=== PATIENT | female | born 1985 ===

== ENCOUNTER 2018-06-04 13:18 | Observation (INO) | payer SELFPAY ==
[2018-06-04 13:34] VITALS: BMI 40.0
[2018-06-04] MEDS ORDERED: Sodium Chloride 0.9% 1,000 ML IV STA (13:48)
--- NOTE | 2018-06-04 13:48 | ED PDOC ---
Arrival/HPI - General Chief Complaint: Abdominal Pain Historian: Patient - History of Present Illness Narrative History of Present Illness (Text): 06/04/18 13:42 32 y/o female, no significant pmh, nkda, c/o lower abdominal pain and nausea/vomiting x 1 week. Aching and cramp, on and off, occasional nausea and vomiting, no diarrhea, mild lower back pain, no numbness or tingling, no chest pain or shortness of breath, no other medical or psychological complaints. Past Medical History - Provider Review Nursing Documentation Reviewed: Yes - Infectious Disease Hx of Infectious Diseases: None - Cardiac Hx Cardiac Disorders: No - Pulmonary Hx Respiratory Disorders: Yes Hx Asthma: Yes - Neurological Hx Neurological Disorder: No - HEENT Hx HEENT Disorder: No - Renal Hx Renal Disorder: No - Endocrine/Metabolic Hx Endocrine Disorders: No - Hematological/Oncological Hx Blood Disorders: No - Integumentary Hx Dermatological Disorder: No - Musculoskeletal/Rheumatological Hx Musculoskeletal Disorders: No - Gastrointestinal Hx Gastrointestinal Disorders: No - Genitourinary/Gynecological Hx Genitourinary Disorders: No - Psychiatric Hx Psychophysiologic Disorder: No Hx Substance Use: No - Surgical History Hx Appendectomy: Yes Hx Section: Yes (x 1) Family/Social History - Physician Review Nursing Documentation Reviewed: Yes Family/Social History: Unknown Family HX Smoking Status: Never Smoked Hx Alcohol Use: No Hx Substance Use: No Allergies/Home Meds Allergies/Adverse Reactions: Allergies No Known Allergies Allergy (Verified 06/04/18 13:34) Home Medications: Home Meds Medication Instructions Recorded Confirmed No Known Home Med 06/04/18 06/04/18 Review of Systems - Review of Systems Constitutional: absent: Fatigue, Fevers Eyes: absent: Vision Changes ENT: absent: Hearing Changes Respiratory: absent: SOB, Cough Cardiovascular: absent: Chest Pain Gastrointestinal: Abdominal Pain, Nausea, Vomiting. absent: Constipation, Diarrhea Genitourinary Female: absent: Dysuria, Frequency Musculoskeletal: absent: Arthralgias, Back Pain, Neck Pain Skin: absent: Rash, Pruritis Neurological: absent: Headache, Dizziness Hemo/Lymphatic: absent: Adenopathy Psychiatric: absent: Anxiety, Depression, Suicidal Ideation Physical Exam Vital Signs Reviewed: Yes Vital Signs Temp Pulse Resp BP Pulse Ox 06/04/18 13:34 98.1 F 72 18 157/116 H 98 Temperature: Afebrile Blood Pressure: Hypertensive Pulse: Regular Respiratory Rate: Normal Appearance: Positive for: Well-Appearing, Non-Toxic, Comfortable Pain Distress: Moderate Mental Status: Positive for: Alert and Oriented X 3 - Systems Exam Head: Present: Atraumatic, Normocephalic Pupils: Present: PERRL Extroacular Muscles: Present: EOMI Conjunctiva: Present: Normal Mouth: Present: Moist Mucous Membranes Neck: Present: Normal Range of Motion Respiratory/Chest: Present: Clear to Auscultation, Good Air Exchange. No: Respiratory Distress, Accessory Muscle Use Cardiovascular: Present: Regular Rate and Rhythm, Normal S1, S2. No: Murmurs Abdomen: Present: Tenderness (lower abdominal region). No: Distention, Peritoneal Signs, Rebound, Guarding Genitourinary/Pelvic Exam: Present: Other (Pt. declined) Back: Present: Normal Inspection Upper Extremity: Present: Normal Inspection. No: Cyanosis, Edema Lower Extremity: Present: Normal Inspection. No: Edema Neurological: Present: GCS=15, CN II-XII Intact, Speech Normal Skin: Present: Warm, Dry, Normal Color. No: Rashes Psychiatric: Present: Alert, Oriented x 3, Normal Insight, Normal Concentration Medical Decision Making ED Course and Treatment: 06/04/18 13:54 -labs -CT abdomen and pelvis -IVF toradol/pepcid/zofran -Observe and reassess 06/04/18 17:06 -Urine hcg is negative -CT abdomen and pelvis: Mild dilatation of the proximal small bowel loops with fecalization of small bowel contents could be related to chronic stasis or developing/partial obstruction. Mild hepatomegaly and fatty liver\ -Labs are non significant -UA show no UTI -Paged out to the surgical elastic knitter. 06/04/18 17:45 -I spoke to the surgical elastic knitter Dr. Johnson, will come to the ER to evaluate the patient and request to admit to the hospitalist. 06/04/18 17:48 -I spoke to the hospitalist Dr. Martin, discussed about the case/labs/radiology result and surgical consult, agreed to admit to her service. - RAD Interpretation Radiology Orders: Date of service: 06/04/2018 PROCEDURE: CT Abdomen and Pelvis with contrast HISTORY: abdominal pain COMPARISON: None available. TECHNIQUE: CT scan of the abdomen and pelvis was performed after administration of intravenous contrast. Oral contrast was not administered. Coronal and sagittal reformatted images were obtained. Contrast dose: Radiation dose: Total exam DLP = 1194.61 mGy-cm. This CT exam was performed using one or more of the following dose reduction techniques: Automated exposure control, adjustment of the mA and/or kV according to patient size, and/or use of iterative reconstruction technique. FINDINGS: LOWER THORAX: The visualized lungs are clear. LIVER: Mild hepatomegaly and fatty liver. Normal homogeneous enhancement. No gross lesion or ductal dilatation. GALLBLADDER AND BILE DUCTS: Well distended. No calcified gallstones, wall thickening or pericholecystic fluid. PANCREAS: Normal in size with homogeneous enhancement. No gross lesion or ductal dilatation. SPLEEN: Normal in size and appearance. ADRENALS: No discrete nodule. KIDNEYS AND URETERS: Normal in size with homogeneous enhancement. No hydronephrosis. No solid mass. VASCULATURE: No aortic aneurysm. There are no aortic atherosclerotic calcifications or mural plaque present. BOWEL: Evaluation of the bowel is limited in the absence of oral contrast. There is mild dilatation of proximal small bowel loops with fecalization of contents. The mid and distal small bowel loops are normal in caliber. There is moderate amount of stool scattered throughout the colon. The colon is grossly normal in appearance. No bowel wall thickening or obstruction. APPENDIX: Not distinctly identified however no inflammatory changes in the right lower quadrant. PERITONEUM: No free fluid. No free air. LYMPH NODES: No enlarged lymph nodes. BLADDER: Well distended and normal in appearance. REPRODUCTIVE: The uterus is normal in size. BONES: No acute fracture. Within normal limits for the patient's age. OTHER FINDINGS: None. IMPRESSION: 1. Mild dilatation of the proximal small bowel loops with fecalization of small bowel contents could be related to chronic stasis or developing/partial obstruction. 2. Mild hepatomegaly and fatty liver. Sewer Hand: Radiologist - PA / CELLULAR BIOLOGIST / Resident Statement MD/DO has reviewed & agrees with the documentation as recorded. Disposition/Present on Arrival - Present on Arrival Any Indicators Present on Arrival: No History of DVT/PE: No History of Uncontrolled Diabetes: No Urinary Catheter: No History of Decub. Ulcer: No History Surgical Site Infection Following: None - Disposition Have Diagnosis and Disposition been Completed?: Yes Diagnosis: Abdominal pain, Nausea & vomiting, Abnormal CT of the abdomen Disposition: HOSPITALIZED Disposition Time: 17:14 Patient Plan: Observation Patient Problems: Current Active Problems Problem Status Onset Abdominal pain Acute Nausea & vomiting Acute Condition: STABLE Forms: [employer] (Lux[place]ish)
[2018-06-04 14:21] LABS: URINE BILIRUBIN NEGATIVE (NEGATIVE); URINE BLOOD SMALL (NEGATIVE); URINE GLUCOSE (UA) NEGATIVE (NEGATIVE); URINE LEUKOCYTE ESTERASE NEGATIVE Leu/uL (NEGATIVE); URINE PROTEIN NEGATIVE mg/dL (<30 mg/dL); URINE UROBILINOGEN 0.2 E.U./dL (<1 E.U./dL)
[2018-06-04 14:25] LABS: URINE APPEARANCE SL CLOUDY (CLEAR); URINE COLOR YELLOW (YELLOW)
[2018-06-04 14:32] LABS: URINE BACTERIA FEW /hpf; URINE RBC 0 - 2 /hpf (0-2); URINE WBC 0 - 2 /hpf (0-6)
[2018-06-04 14:36] LABS: BASO # 0.03 K/mm3 (0.0-2.0); BASO % 0.4 % (0.0-3.0); EOS # 0.2 (0.0-0.7); EOS % 2.3 % (1.5-5.0); HEMOGLOBIN 12.1 g/dL (12.0-16.0); LYMPH # 2.6 (1.2-3.4); LYMPH % 35.6 % (22.0-35.0); MEAN CELL VOLUME 81.8 fl (80.0-105.0); MEAN CORPUSCULAR HEMOGLOBIN 25.9 pg (25.0-35.0); MEAN CORPUSCULAR HGB CONC 31.6 g/dl (31.0-37.0); MEAN PLATELET VOLUME 9.9 fl (7.0-11.0); MONO # 0.4 (0.1-0.6); MONO % 5.8 % (1.0-6.0); RBC 4.68 10^6/uL (3.5-6.1); RED CELL DISTRIBUTION WIDTH 13.9 % (11.5-14.5); WHITE BLOOD COUNT 7.3 10^3/uL (4.5-11.0)
[2018-06-04 14:45] LABS: ALB/GLOB RATIO 1.2 (1.1-1.8); ALBUMIN 4.2 g/dL (3.0-4.8); ALT/SGPT 24 U/L (7-56); AST/SGOT 22 U/L (14-36); BLOOD UREA NITROGEN 13 mg/dL (7-21); CALCIUM 9.5 mg/dL (8.4-10.5); GFR NON-AFRICAN AMERICAN > 60; LIPASE 49 U/L (23-300)
--- NOTE | 2018-06-04 16:17 | CT ---
Date of service: 06/04/2018 PROCEDURE: CT Abdomen and Pelvis with contrast HISTORY: abdominal pain COMPARISON: None available. TECHNIQUE: CT scan of the abdomen and pelvis was performed after administration of intravenous contrast. Oral contrast was not administered. Coronal and sagittal reformatted images were obtained. Contrast dose: Radiation dose: Total exam DLP = 1194.61 mGy-cm. This CT exam was performed using one or more of the following dose reduction techniques: Automated exposure control, adjustment of the mA and/or kV according to patient size, and/or use of iterative reconstruction technique. FINDINGS: LOWER THORAX: The visualized lungs are clear. LIVER: Mild hepatomegaly and fatty liver. Normal homogeneous enhancement. No gross lesion or ductal dilatation. GALLBLADDER AND BILE DUCTS: Well distended. No calcified gallstones, wall thickening or pericholecystic fluid. PANCREAS: Normal in size with homogeneous enhancement. No gross lesion or ductal dilatation. SPLEEN: Normal in size and appearance. ADRENALS: No discrete nodule. KIDNEYS AND URETERS: Normal in size with homogeneous enhancement. No hydronephrosis. No solid mass. VASCULATURE: No aortic aneurysm. There are no aortic atherosclerotic calcifications or mural plaque present. BOWEL: Evaluation of the bowel is limited in the absence of oral contrast. There is mild dilatation of proximal small bowel loops with fecalization of contents. The mid and distal small bowel loops are normal in caliber. There is moderate amount of stool scattered throughout the colon. The colon is grossly normal in appearance. No bowel wall thickening or obstruction. APPENDIX: Not distinctly identified however no inflammatory changes in the right lower quadrant. PERITONEUM: No free fluid. No free air. LYMPH NODES: No enlarged lymph nodes. BLADDER: Well distended and normal in appearance. REPRODUCTIVE: The uterus is normal in size. BONES: No acute fracture. Within normal limits for the patient's age. OTHER FINDINGS: None. IMPRESSION: 1. Mild dilatation of the proximal small bowel loops with fecalization of small bowel contents could be related to chronic stasis or developing/partial obstruction. 2. Mild hepatomegaly and fatty liver.
--- NOTE | 2018-06-04 18:24 | CP.PCM.CON ---
History of Present Illness - History of Present Illness History of Present Illness: General surgery consult for Dr. Brianna Johnson, PGY-2 Pt seen/examined at bedside 33F w/no sig PMH consulted for periumbilical abdominal pain x 1 day. Pt reports pain started one day prior to examination at 9am, reports eating Ham and cheese sandwich and orange prior to pain onset. States that she has been having abdominal discomfort for the past year, unable to tolerate pressure, notes that she had abdominal pain after eating fatty foods. Admits to N, emesis x 3 (nb, nb), having flatus, last BM on day of evaluation at 11am (normal caliber, consistency, no blood). Denies trauma to area, eating out, fevers, chills, c hanges in urinary habits, CP, SOB, other complaints. In ED- CT scan with fecalization of small bowel contents, no air fluid levels, no bowel dilation. No leukocytosis, lipase WNL (49), T bili WNL (0.3). PMH: Denies PSH: Appendectomy, x 1 All: NKDA SH: Denies ETOH, tobacco or illicit drug use PMD: Denies FH: Non contributory Review of Systems - Review of Systems All systems: reviewed and no additional remarkable complaints except - Constitutional Constitutional: absent: Chills, Fever - EENT Ears: Dizziness (once, one day prior to evaluation) - Cardiovascular Cardiovascular: absent: Chest Pain - Gastrointestinal Gastrointestinal: Abdominal Pain, Nausea, Vomiting. absent: Change in Bowel Habits, Change in Stool Character, Constipation, Diarrhea, Hematemesis, Hematochezia, Melena - Genitourinary Genitourinary: absent: Change in Urinary Stream - Reproductive: Female Reproductive:Female: absent: Abnormal Vaginal Bleeding - Neurological Neurological: absent: Weakness - Psychiatric Psychiatric: absent: Change in Appetite Past Patient History - Infectious Disease Hx of Infectious Diseases: None - Past Social History Smoking Status: Never Smoked - CARDIAC Hx Cardiac Disorders: No - PULMONARY Hx Respiratory Disorders: Yes Hx Asthma: Yes - NEUROLOGICAL Hx Neurological Disorder: No - HEENT Hx HEENT Problems: No - RENAL Hx Chronic Kidney Disease: No - ENDOCRINE/METABOLIC Hx Endocrine Disorders: No - HEMATOLOGICAL/ONCOLOGICAL Hx Blood Disorders: No - INTEGUMENTARY Hx Dermatological Problems: No - MUSCULOSKELETAL/RHEUMATOLOGICAL Hx Musculoskeletal Disorders: No - GASTROINTESTINAL Hx Gastrointestinal Disorders: No - GENITOURINARY/GYNECOLOGICAL Hx Genitourinary Disorders: No - PSYCHIATRIC Hx Psychophysiologic Disorder: No Hx Substance Use: No - SURGICAL HISTORY Hx Appendectomy: Yes Hx Section: Yes (x 1) Meds Allergies/Adverse Reactions: Allergies Allergy/AdvReac Type Severity Reaction Status Date / Time No Known Allergies Allergy Verified 06/04/18 13:34 Physical Exam - Constitutional Appears: Non-toxic, No Acute Distress - Head Exam Head Exam: ATRAUMATIC, NORMAL INSPECTION, NORMOCEPHALIC - Eye Exam Eye Exam: EOMI, Normal appearance - ENT Exam ENT Exam: Mucous Membranes Moist, Normal Exam - Neck Exam Neck exam: Positive for: Full Rom, Normal Inspection - Respiratory Exam Respiratory Exam: Clear to Auscultation Bilateral, NORMAL BREATHING PATTERN. absent: Rales, Rhonchi, Wheezes, Respiratory Distress - Cardiovascular Exam Cardiovascular Exam: REGULAR RHYTHM, +S1, +S2 - GI/Abdominal Exam GI & Abdominal Exam: Normal Bowel Sounds, Soft, Tenderness (RUQ, epigastric, periumbilical). absent: Diminished Bowel Sounds, Distended (obese), Firm, Guarding, Hernia, Rebound, Rigid - Rectal Exam Rectal Exam: NORMAL INSPECTION. absent: Hemorrhoids, Fecal Impaction - Extremities Exam Extremities exam: Positive for: full ROM, normal inspection - Neurological Exam Neurological exam: Alert, CN II-XII Intact, Oriented x3 - Psychiatric Exam Psychiatric exam: Normal Affect, Normal Mood - Skin Skin Exam: Dry, Intact, Normal Color, Warm Results - Vital Signs Recent Vital Signs: Last Vital Signs Temp 98.1 F 06/04/18 13:34 Pulse 72 06/04/18 13:34 Resp 18 06/04/18 13:34 BP 146/87 06/04/18 15:12 Pulse Ox 98 06/04/18 13:34 - Labs Result Diagrams: 06/04/18 14:30 06/04/18 14:30 Labs: Laboratory Results - last 24 hr 06/04/18 06/04/18 06/04/18 14:00 14:30 14:30 WBC 7.3 RBC 4.68 Hgb 12.1 Hct 38.3 MCV 81.8 MCH 25.9 MCHC 31.6 RDW 13.9 Plt Count 332 MPV 9.9 Neut % (Auto) 55.9 Lymph % (Auto) 35.6 H [place] % (Auto) 5.8 Eos % (Auto) 2.3 Baso % (Auto) 0.4 Lymph # (Auto) 2.6 [place] # (Auto) 0.4 Eos # (Auto) 0.2 Baso # (Auto) 0.03 Absolute Neuts (auto) 4.05 Sodium 138 Potassium 4.1 Chloride 102 Carbon Dioxide 28 Anion Gap 11 BUN 13 Creatinine 0.6 L Est GFR ( Amer) > 60 Est GFR (Non-Af Amer) > 60 Random Glucose 79 Calcium 9.5 Magnesium 2.0 Total Bilirubin 0.3 AST 22 ALT 24 Alkaline Phosphatase 63 Total Protein 7.7 Albumin 4.2 Globulin 3.5 Albumin/Globulin Ratio 1.2 Lipase 49 Urine Color Yellow Urine Appearance Sl cloudy Urine pH 6.0 Ur Specific [place] 1.020 Urine Protein Negative Urine Glucose (UA) Negative Urine Ketones Negative Urine Blood Small H Urine Nitrate Negative Urine Bilirubin Negative Urine Urobilinogen 0.2 Ur Leukocyte Esterase Negative Urine RBC 0 - 2 Urine WBC 0 - 2 Ur Epithelial Cells 4 - 5 Urine Bacteria Few Assessment & Plan - Assessment and Plan (Free Text) Assessment: 33F w/periumbilical abdominal pain x 1 day Plan: Pain control- recommend non narcotic NPO IVF Recommend Abdominal U/S if Abdominal u/s negative, recommend HIDA w/CCK Further care as per primary team DW Dr. Sea Johnson, PGY-2 - Date & Time Date: 06/04/18 Time: 18:22
--- NOTE | 2018-06-04 18:53 | CP.PCM.HP ---
<Lilia Mckeon - Last Filed: 06/04/18 18:53> History of Present Illness - History of Present Illness History of Present Illness: Lilia cMkeon, PGY1 Hospital H&P This is a 33 year old with no PMH presenting to the hospital for one day history of periumbilical abdominal pain. Pain started at work yesterday while sitting, characterized as cramping, non radiating, occurring intermittently, associated with nausea and 3 episodes of NBNB vomiting and worse with eating greasy foods. Her last meal before onset of symptoms was a ham sandwich. She states she has had moderate abdominal cramping intermittently over the last year. She admits to normal BM's, the last one occurring this morning at 11am. Patient endorses passing gas today. She denies CP, SOB, fevers, diarrhea, constipation, back p ain, urinary complaints, numbness, tingling, headaches, chills, swelling, recent travel, recent sickness, recent trauma, diet change, recent lifestyle change and sick contacts at home. 12 point ROS noted here, otherwise unremarkable. PMD: none PMH: none Meds: none SH: denies smoking, drinking and drug use Sx: appendectomy and one All: NKDA FH: denies Present on Admission - Present on Admission Any Indicators Present on Admission: No Past Patient History - Infectious Disease Hx of Infectious Diseases: None - Past Social History Smoking Status: Never Smoked - CARDIAC Hx Cardiac Disorders: No - PULMONARY Hx Respiratory Disorders: Yes Hx Asthma: Yes - NEUROLOGICAL Hx Neurological Disorder: No - HEENT Hx HEENT Problems: No - RENAL Hx Chronic Kidney Disease: No - ENDOCRINE/METABOLIC Hx Endocrine Disorders: No - HEMATOLOGICAL/ONCOLOGICAL Hx Blood Disorders: No - INTEGUMENTARY Hx Dermatological Problems: No - MUSCULOSKELETAL/RHEUMATOLOGICAL Hx Musculoskeletal Disorders: No - GASTROINTESTINAL Hx Gastrointestinal Disorders: No - GENITOURINARY/GYNECOLOGICAL Hx Genitourinary Disorders: No - PSYCHIATRIC Hx Psychophysiologic Disorder: No Hx Substance Use: No - SURGICAL HISTORY Hx Appendectomy: Yes Hx Section: Yes (x 1) Meds Allergies/Adverse Reactions: Allergies Allergy/AdvReac Type Severity Reaction Status Date / Time No Known Allergies Allergy Verified 06/04/18 13:34 Physical Exam - Constitutional Appears: No Acute Distress - Head Exam Head Exam: ATRAUMATIC, NORMAL INSPECTION - Eye Exam Eye Exam: EOMI Pupil Exam: PERRL - ENT Exam ENT Exam: Mucous Membranes Moist - Respiratory Exam Respiratory Exam: Clear to Auscultation Bilateral, NORMAL BREATHING PATTERN. absent: Accessory Muscle Use, Wheezes - Cardiovascular Exam Cardiovascular Exam: REGULAR RHYTHM, +S1, +S2. absent: Tachycardia - GI/Abdominal Exam GI & Abdominal Exam: Normal Bowel Sounds, Soft. absent: Firm, Guarding Additional comments: RUQ tenderness and periumbilical pain appreciated. Negative rovsing and obturator sign. Negative ferris sign. - Extremities Exam Extremities exam: Positive for: normal inspection, pedal pulses present. Negative for: calf tenderness, pedal edema, tenderness - Back Exam Back exam: absent: CVA tenderness (L), CVA tenderness (R) - Neurological Exam Neurological exam: Alert, CN II-XII Intact, Oriented x3 - Skin Skin Exam: Normal Color, Warm Results - Vital Signs Recent Vital Signs: Last Vital Signs Temp 98.1 F 06/04/18 13:34 Pulse 72 06/04/18 13:34 Resp 18 06/04/18 13:34 BP 146/87 06/04/18 15:12 Pulse Ox 98 06/04/18 13:34 - Labs Result Diagrams: 06/04/18 14:30 06/04/18 14:30 Labs: Laboratory Results - last 24 hr 06/04/18 06/04/18 06/04/18 14:00 14:30 14:30 WBC 7.3 RBC 4.68 Hgb 12.1 Hct 38.3 MCV 81.8 MCH 25.9 MCHC 31.6 RDW 13.9 Plt Count 332 MPV 9.9 Neut % (Auto) 55.9 Lymph % (Auto) 35.6 H [place] % (Auto) 5.8 Eos % (Auto) 2.3 Baso % (Auto) 0.4 Lymph # (Auto) 2.6 [place] # (Auto) 0.4 Eos # (Auto) 0.2 Baso # (Auto) 0.03 Absolute Neuts (auto) 4.05 Sodium 138 Potassium 4.1 Chloride 102 Carbon Dioxide 28 Anion Gap 11 BUN 13 Creatinine 0.6 L Est GFR ( Amer) > 60 Est GFR (Non-Af Amer) > 60 Random Glucose 79 Calcium 9.5 Magnesium 2.0 Total Bilirubin 0.3 AST 22 ALT 24 Alkaline Phosphatase 63 Total Protein 7.7 Albumin 4.2 Globulin 3.5 Albumin/Globulin Ratio 1.2 Lipase 49 Urine Color Yellow Urine Appearance Sl cloudy Urine pH 6.0 Ur Specific [place] 1.020 Urine Protein Negative Urine Glucose (UA) Negative Urine Ketones Negative Urine Blood Small H Urine Nitrate Negative Urine Bilirubin Negative Urine Urobilinogen 0.2 Ur Leukocyte Esterase Negative Urine RBC 0 - 2 Urine WBC 0 - 2 Ur Epithelial Cells 4 - 5 Urine Bacteria Few Assessment & Plan - Assessment and Plan (Free Text) Assessment: This is a 33 year old with no PMH presenting to the hospital for one day history of periumbilical abdominal pain. Plan: Concern for SBO -CTAP 06/04 shows mild dilation of the proximal small bowel loops with f ecalization fo small bowel contents, possibly chronic stasis or developing/partial obstruction. Mild hepatomegaly and fatty liver -afebrile, no WBC count noted -NPO -NS @ 100cc -zofran prn -toradol 15mg q5 prn -ABD US pending -will consider flat plate abdominal xray in AM -Gen surg on consult, Dr. Osei PPX -lovenox 40mg SC -protonix 40mg IV Patient seen and case discussed with attending, Dr. Galdamez <Shawn Galdamez - Last Filed: 06/05/18 15:32> Results - Vital Signs Recent Vital Signs: Last Vital Signs Temp 97.9 F 06/05/18 08:52 Pulse 75 06/05/18 08:52 Resp 18 06/05/18 08:52 BP 155/62 H 06/05/18 08:52 Pulse Ox 98 06/05/18 08:52 - Labs Result Diagrams: 06/05/18 07:00 06/05/18 07:00 Labs: Laboratory Results - last 24 hr 06/05/18 06/05/18 07:00 07:00 WBC 6.4 RBC 4.53 Hgb 11.4 L Hct 37.0 MCV 81.7 MCH 25.2 MCHC 30.8 L RDW 13.8 Plt Count 326 MPV 10.0 Neut % (Auto) 58.5 Lymph % (Auto) 32.7 [place] % (Auto) 6.1 H Eos % (Auto) 2.2 Baso % (Auto) 0.5 Lymph # (Auto) 2.1 [place] # (Auto) 0.4 Eos # (Auto) 0.1 Baso # (Auto) 0.03 Absolute Neuts (auto) 3.73 Sodium 139 Potassium 3.8 Chloride 103 Carbon Dioxide 29 Anion Gap 11 BUN 11 Creatinine 0.7 Est GFR ( Amer) > 60 Est GFR (Non-Af Amer) > 60 Random Glucose 85 Calcium 8.9 Total Bilirubin 0.4 AST 22 ALT 24 Alkaline Phosphatase 54 Total Protein 7.3 Albumin 4.1 Globulin 3.2 Albumin/Globulin Ratio 1.3 Attending/Attestation - Attestation I have personally seen and examined this patient.: Yes I have fully participated in the care of the patient.: Yes I have reviewed all pertinent clinical information: Yes Notes (Text): 06/05/18 15:25 Attending note; Patient seen and examined with resident in ER. Patient is alert and awake. Complaining of abdominal pain nausea, vomiting. Denies any fevers, chills. complaining of bloating. Patient is a 33 year old with no PMH presenting to the hospital for one day history of periumbilical abdominal pain. Pain started at work yesterday while sitting, characterized as cramping, non radiating, occurring intermittently, associated with nausea and 3 episodes of vomiting and worse with eating greasy foods. 1. Abdominal pain nausea vomiting; CT abdomen and pelvis showed mild dilatation of the proximal small bowel loop and fecalilization of the small bowel could be chronic. Surgery evaluation appreciated. Keep patient n.p.o. started on IV fluids. 2. Nausea on vomiting; Zofran as needed. 3 GI prophylaxis with Protonix. 4. Right upper quadrant discomfort; abdominal ultrasound ordered . monitor Patient closely. 06/05/18 15:30
[2018-06-04] MEDS ORDERED: Sodium Chloride 0.9% 1,000 ML IV SCH (19:15)
[2018-06-05 07:46] LABS: BASO # 0.03 K/mm3 (0.0-2.0); BASO % 0.5 % (0.0-3.0); EOS # 0.1 (0.0-0.7); EOS % 2.2 % (1.5-5.0); HEMOGLOBIN 11.4 g/dL (12.0-16.0); LYMPH # 2.1 (1.2-3.4); LYMPH % 32.7 % (22.0-35.0); MEAN CELL VOLUME 81.7 fl (80.0-105.0); MEAN CORPUSCULAR HEMOGLOBIN 25.2 pg (25.0-35.0); MEAN CORPUSCULAR HGB CONC 30.8 g/dl (31.0-37.0); MONO # 0.4 (0.1-0.6); MONO % 6.1 % (1.0-6.0); RBC 4.53 10^6/uL (3.5-6.1); RED CELL DISTRIBUTION WIDTH 13.8 % (11.5-14.5); WHITE BLOOD COUNT 6.4 10^3/uL (4.5-11.0)
[2018-06-05 08:01] LABS: ALB/GLOB RATIO 1.3 (1.1-1.8); ALBUMIN 4.1 g/dL (3.0-4.8); ALT/SGPT 24 U/L (7-56); AST/SGOT 22 U/L (14-36); BLOOD UREA NITROGEN 11 mg/dL (7-21); CALCIUM 8.9 mg/dL (8.4-10.5); GFR NON-AFRICAN AMERICAN > 60
--- NOTE | 2018-06-05 08:33 | US ---
Date of service: 06/04/2018 HISTORY: ruq abd pain, r/o gallstones COMPARISON: None. TECHNIQUE: Sonographic evaluation of the abdomen. FINDINGS: LIVER: Measures 16 by 10.58 cm. Increased echogenicity of the liver parenchyma. No mass. No intrahepatic bile duct dilatation. GALLBLADDER: Unremarkable. No gallstones. COMMON BILE DUCT: Measures 4 mm. No stones. No dilatation. PANCREAS: Unremarkable as visualized. No mass. No ductal dilatation. RIGHT KIDNEY: Measures 10.94 x 4.25 x 5.99cm. Normal echogenicity. No calculus, mass, or hydronephrosis. LEFT KIDNEY: Measures 11 x 5.2 x 5.6cm. Normal echogenicity. No calculus, mass, or hydronephrosis. SPLEEN: Normal in size and contour. No mass. 10.43 x 3.65 AORTA: No aneurysmal dilatation. IVC: Unremarkable. OTHER FINDINGS: The report concurs with the preliminary [facility] report IMPRESSION: Fatty infiltration of the liver
--- NOTE | 2018-06-05 09:16 | CP.PCM.PN ---
Subjective - Date & Time of Evaluation Date of Evaluation: 06/05/18 Time of Evaluation: 09:14 - Subjective Subjective: Josie Cassidy PGY1 Progress Note for Dr. Osei Pt was examined at bedside this morning. She reports continuation of her abdom inal pain. She denies fever, chills, nausea, vomiting, diarrhea. Objective - Vital Signs/Intake and Output Vital Signs (last 24 hours): Temp Pulse Resp BP Pulse Ox 97.9 F 75 18 155/62 H 98 06/05/18 08:52 06/05/18 08:52 06/05/18 08:52 06/05/18 08:52 06/05/18 08:52 Intake and Output: 06/05/18 06/05/18 06:59 18:59 Intake Total 0 Balance 0 - Medications Medications: Current Medications Sodium Chloride (Sodium Chloride 0.9%) 1,000 mls @ 100 mls/hr IV .Q10H [facility] Last Admin: 06/04/18 20:20 Dose: 100 mls/hr Ketorolac Tromethamine (Toradol) 15 mg IVP Q6 PRN PRN Reason: Pain, severe (8-10) Ondansetron HCl (Zofran Inj) 4 mg IVP Q6H PRN PRN Reason: Nausea/Vomiting Pantoprazole Sodium (Protonix Inj) 40 mg IVP DAILY [facility] - Labs Labs: 06/05/18 07:00 06/05/18 07:00 - Constitutional Appears: Well, No Acute Distress - Head Exam Head Exam: ATRAUMATIC, NORMOCEPHALIC - Eye Exam Eye Exam: EOMI, Normal appearance - ENT Exam ENT Exam: Mucous Membranes Moist - Respiratory Exam Respiratory Exam: NORMAL BREATHING PATTERN. absent: Respiratory Distress - GI/Abdominal Exam GI & Abdominal Exam: Soft, Tenderness. absent: Distended, Guarding, Rebound - Extremities Exam Extremities Exam: Normal Inspection - Neurological Exam Neurological Exam: Alert, Awake, Oriented x3 - Psychiatric Exam Psychiatric exam: Normal Affect, Normal Mood - Skin Skin Exam: Normal Color Assessment and Plan - Assessment and Plan (Free Text) Assessment: 33F w/periumbilical abdominal pain. Plan: - f/u HIDA scan - HIDA w/ CCK if HIDA negative - NPO - IVF - pain management further recommendations as per Dr. Osei
[2018-06-05] MEDS ORDERED: Enoxaparin 40 mg Syringe SC SCH (10:00)
--- NOTE | 2018-06-05 12:04 | CP.PCM.PN ---
<Lilia Mckeon - Last Filed: 06/05/18 12:00> Subjective - Date & Time of Evaluation Date of Evaluation: 06/05/18 Time of Evaluation: 10:00 - Subjective Subjective: Lilia Mckeon PGY1 Medicine Progress Note Patient seen and examined at bedside this morning. No acute events reported overnight. Patient continues to admit to abdominal pain that is not improved from yesterday. Patient is in tears due to hunger; will advance diet as per surgery team. Denies any new complaints at this time. Admits to and gas. Objective - Vital Signs/Intake and Output Vital Signs (last 24 hours): Temp Pulse Resp BP Pulse Ox 97.9 F 75 18 155/62 H 98 06/05/18 08:52 06/05/18 08:52 06/05/18 08:52 06/05/18 08:52 06/05/18 08:52 Intake and Output: 06/05/18 06/05/18 06:59 18:59 Intake Total 0 Balance 0 - Medications Medications: Current Medications Sodium Chloride (Sodium Chloride 0.9%) 1,000 mls @ 100 mls/hr IV .Q10H [facility] Last Admin: 06/04/18 20:20 Dose: 100 mls/hr Ketorolac Tromethamine (Toradol) 15 mg IVP Q6 PRN PRN Reason: Pain, severe (8-10) Ondansetron HCl (Zofran Inj) 4 mg IVP Q6H PRN PRN Reason: Nausea/Vomiting Pantoprazole Sodium (Protonix Inj) 40 mg IVP DAILY [facility] Last Admin: 06/05/18 09:25 Dose: 40 mg - Labs Labs: 06/05/18 07:00 06/05/18 07:00 Physical Exam - Constitutional Appears: No Acute Distress - Head Exam Head Exam: ATRAUMATIC, NORMAL INSPECTION - Eye Exam Eye Exam: EOMI Pupil Exam: PERRL - ENT Exam ENT Exam: Mucous Membranes Moist - Respiratory Exam Respiratory Exam: Clear to Auscultation Bilateral, NORMAL BREATHING PATTERN. absent: Accessory Muscle Use, Wheezes - Cardiovascular Exam Cardiovascular Exam: REGULAR RHYTHM, +S1, +S2. absent: Tachycardia - GI/Abdominal Exam GI & Abdominal Exam: Normal Bowel Sounds, Soft. absent: Firm, Guarding Additional comments: RUQ tenderness and periumbilical pain noted with superficial palpation - Extremities Exam Extremities exam: Positive for: normal inspection, pedal pulses present. Negative for: calf tenderness, pedal edema, tenderness - Back Exam Back exam: absent: CVA tenderness (L), CVA tenderness (R) - Neurological Exam Neurological exam: Alert, CN II-XII Intact, Oriented x3 - Skin Skin Exam: Normal Color, Warm Assessment and Plan - Assessment and Plan (Free Text) Assessment: This is a 33 year old with no PMH presenting to the hospital for one day history of periumbilical abdominal pain. Plan: SBO vs Biliary Colic -CTAP 06/04 shows mild dilation of the proximal small bowel loops with fecalization fo small bowel contents, possibly chronic stasis or developing/partial obstruction. Mild hepatomegaly and fatty liver -afebrile, no WBC count noted -HIDA scan pending -abd US shows fatty infiltration liver -NPO - advance as per surgery recommendations -NS @ 100cc -zofran prn -toradol 15mg q6 prn -Gen surg on consult, Dr. Osei PPX -protonix 40mg IV -DVT ppx Patient seen and case discussed with attending, Dr. Galdamez <Shawn Galdamez - Last Filed: 06/05/18 15:34> Objective - Vital Signs/Intake and Output Vital Signs (last 24 hours): Temp Pulse Resp BP Pulse Ox 97.9 F 75 18 155/62 H 98 06/05/18 08:52 06/05/18 08:52 06/05/18 08:52 06/05/18 08:52 06/05/18 08:52 Intake and Output: 06/05/18 06/05/18 06:59 18:59 Intake Total 0 Balance 0 - Medications Medications: Current Medications Sodium Chloride (Sodium Chloride 0.9%) 1,000 mls @ 100 mls/hr IV .Q10H [facility] Last Admin: 06/04/18 20:20 Dose: 100 mls/hr Ketorolac Tromethamine (Toradol) 15 mg IVP Q6 PRN PRN Reason: Pain, severe (8-10) Ondansetron HCl (Zofran Inj) 4 mg IVP Q6H PRN PRN Reason: Nausea/Vomiting Pantoprazole Sodium (Protonix Inj) 40 mg IVP DAILY [facility] Last Admin: 06/05/18 09:25 Dose: 40 mg - Labs Labs: 06/05/18 07:00 06/05/18 07:00 Attending/Attestation - Attestation I have personally seen and examined this patient.: Yes I have fully participated in the care of the patient.: Yes I have reviewed all pertinent clinical information, including history, physical exam and plan: Yes Notes (Text): 06/05/18 15:33 Attending note; Patient seen and examined with resident. Patient is alert and awake. still Complaining of abdominal pain. No nausea or vomiting. Denies any fevers, chills. Patient is a 33 year old with no PMH presenting to the hospital for one day history of periumbilical abdominal pain. Pain started at work yesterday while sitting, characterized as cramping, non radiating, occurring intermittently, associated with nausea and 3 episodes of vomiting and worse with eating greasy foods. 1. Abdominal pain nausea vomiting; CT abdomen and pelvis showed mild dilatation of the proximal small bowel loop and fecalilization of the small bowel could be chronic. Surgery evaluation appreciated. Keep patient n.p.o. started on IV fluids. 2. Nausea on vomiting; Zofran as needed. 3 GI prophylaxis with Protonix. 4. Right upper quadrant discomfort; abdominal ultrasound is negative for gallstones showed mild thickening of the gallbladder wall. HIDA scan ordered. We will start clear liquids if HIDA is negative. monitor Patient closely.
--- NOTE | 2018-06-05 13:02 | NM ---
Date of service: 06/05/2018 PROCEDURE: Nuclear Medicine Hepatobiliary Scan HISTORY: biliary dyskinesia COMPARISON: None available. TECHNIQUE: 6.3 mCi of technetium 99m Mebrofenin was administered intravenously. Planar images of the abdomen were obtained at 5 min intervals to 60 mins. Delayed images were also obtained. FINDINGS: LIVER: Timely and homogenous uptake. COMMON BILE DUCT: identified at 5 mins. GALLBLADDER: identified at 15 mins. SMALL BOWEL: Identified at 15 mins. IMPRESSION: Normal Hepatobiliary Scan. The cystic duct is patent.
[2018-06-06 08:04] LABS: BASO # 0.03 K/mm3 (0.0-2.0); BASO % 0.4 % (0.0-3.0); EOS # 0.2 (0.0-0.7); EOS % 2.4 % (1.5-5.0); HEMOGLOBIN 11.6 g/dL (12.0-16.0); MEAN CORPUSCULAR HEMOGLOBIN 25.4 pg (25.0-35.0); MEAN PLATELET VOLUME 10.2 fl (7.0-11.0); MONO # 0.4 (0.1-0.6); MONO % 6.3 % (1.0-6.0); RBC 4.56 10^6/uL (3.5-6.1); RED CELL DISTRIBUTION WIDTH 13.9 % (11.5-14.5)
[2018-06-06 08:20] LABS: ALBUMIN 3.9 g/dL (3.0-4.8); ALT/SGPT 23 U/L (7-56); AST/SGOT 21 U/L (14-36); BLOOD UREA NITROGEN 12 mg/dL (7-21); GFR NON-AFRICAN AMERICAN > 60
[2018-06-06 08:47] VITALS: BP 130/78; PULSE 77; RESP 17; TEMP 98; O2SAT 96
--- NOTE | 2018-06-06 09:55 | CP.PCM.PN ---
Subjective - Date & Time of Evaluation Date of Evaluation: 06/06/18 Time of Evaluation: 09:52 - Subjective Subjective: Hayleetinaricardo Blakelesterorvillenellie PGY1 Progress Note for Dr. Osei Pt was examined at bedside this morning. She reports a small bowel movement this morning in addition to passing gas. Patient denies fever, chills, nausea, vomiting, diarrhea, abdominal pain, chest pain, shortness of breath. She is able to tolerate her diet. Objective - Vital Signs/Intake and Output Vital Signs (last 24 hours): Temp Pulse Resp BP Pulse Ox 98.0 F 77 17 130/78 96 06/06/18 06:00 06/06/18 06:00 06/06/18 06:00 06/06/18 06:00 06/06/18 06:00 Intake and Output: 06/06/18 06/06/18 06:59 18:59 Intake Total 780 Balance 780 - Medications Medications: Current Medications Sodium Chloride (Sodium Chloride 0.9%) 1,000 mls @ 100 mls/hr IV .Q10H [facility] Last Admin: 06/04/18 20:20 Dose: 100 mls/hr Ketorolac Tromethamine (Toradol) 15 mg IVP Q6 PRN PRN Reason: Pain, severe (8-10) Ondansetron HCl (Zofran Inj) 4 mg IVP Q6H PRN PRN Reason: Nausea/Vomiting Pantoprazole Sodium (Protonix Inj) 40 mg IVP DAILY [facility] Last Admin: 06/05/18 09:25 Dose: 40 mg - Labs Labs: 06/06/18 07:15 06/06/18 07:15 - Constitutional Appears: Well, No Acute Distress - Head Exam Head Exam: ATRAUMATIC, NORMOCEPHALIC - Eye Exam Eye Exam: EOMI, Normal appearance - Respiratory Exam Respiratory Exam: NORMAL BREATHING PATTERN. absent: Respiratory Distress - GI/Abdominal Exam GI & Abdominal Exam: Soft, Tenderness. absent: Distended, Guarding Additional comments: mild tenderness to palpation of RLQ - Back Exam Back Exam: NORMAL INSPECTION - Neurological Exam Neurological Exam: Alert, Awake, Oriented x3 - Psychiatric Exam Psychiatric exam: Normal Affect, Normal Mood Assessment and Plan - Assessment and Plan (Free Text) Assessment: 33F w/periumbilical abdominal pain. Plan: - HIDA scan negative. CCK not available at this facility. - diet advanced - pain management - no surgical intervention at this time, signing off. further recommendations as per Dr. Osei
--- NOTE | 2018-06-06 12:38 | CP.PCM.DIS ---
<Lilia Mckeon - Last Filed: 06/06/18 12:30> Provider - Provider Date of Admission: 06/04/18 17:49 Attending physician: Shawn Galdamez MD Consults: 06/04/18 17:43 General Surgery Consult Routine Comment: possible small bowel obstruction. Consulting Provider: Yinka Osei Consulting Physician: Yinka Osei Reason for Consult: possible small bowel obstruction. Time Spent in preparation of Discharge (in minutes): 35 Hospital Course - Lab Results Lab Results: Most Recent Lab Values WBC 7.0 10^3/uL (4.5-11.0) 06/06/18 07:15 RBC 4.56 10^6/uL (3.5-6.1) 06/06/18 07:15 Hgb 11.6 g/dL (12.0-16.0) L 06/06/18 07:15 Hct 37.4 % (36.0-48.0) 06/06/18 07:15 MCV 82.0 fl (80.0-105.0) 06/06/18 07:15 MCH 25.4 pg (25.0-35.0) 06/06/18 07:15 MCHC 31.0 g/dl (31.0-37.0) 06/06/18 07:15 RDW 13.9 % (11.5-14.5) 06/06/18 07:15 Plt Count 342 10^3/uL (120.0-450.0) 06/06/18 07:15 MPV 10.2 fl (7.0-11.0) 06/06/18 07:15 Neut % (Auto) 62.9 % (50.0-68.0) 06/06/18 07:15 Lymph % (Auto) 28.0 % (22.0-35.0) 06/06/18 07:15 [place] % (Auto) 6.3 % (1.0-6.0) H 06/06/18 07:15 Eos % (Auto) 2.4 % (1.5-5.0) 06/06/18 07:15 Baso % (Auto) 0.4 % (0.0-3.0) 06/06/18 07:15 Lymph # (Auto) 2.0 (1.2-3.4) 06/06/18 07:15 [place] # (Auto) 0.4 (0.1-0.6) 06/06/18 07:15 Eos # (Auto) 0.2 (0.0-0.7) 06/06/18 07:15 Baso # (Auto) 0.03 K/mm3 (0.0-2.0) 06/06/18 07:15 Absolute Neuts (auto) 4.40 (1.4-6.5) 06/06/18 07:15 Sodium 139 mmol/L (132-148) 06/06/18 07:15 Potassium 4.4 mmol/L (3.6-5.0) 06/06/18 07:15 Chloride 102 mmol/L (98-107) 06/06/18 07:15 Carbon Dioxide 30 mmol/L (21-33) 06/06/18 07:15 Anion Gap 13 (10-20) 06/06/18 07:15 BUN 12 mg/dL (7-21) 06/06/18 07:15 Creatinine 0.7 mg/dl (0.7-1.2) 06/06/18 07:15 Est GFR ( Amer) > 60 06/06/18 07:15 Est GFR (Non-Af Amer) > 60 06/06/18 07:15 Random Glucose 93 mg/dL (70-110) 06/06/18 07:15 Calcium 9.0 mg/dL (8.4-10.5) 06/06/18 07:15 Magnesium 2.0 mg/dL (1.7-2.2) 06/04/18 14:30 Total Bilirubin 0.3 mg/dL (0.2-1.3) 06/06/18 07:15 AST 21 U/L (14-36) 06/06/18 07:15 ALT 23 U/L (7-56) 06/06/18 07:15 Alkaline Phosphatase 58 U/L (38-126) 06/06/18 07:15 Total Protein 7.7 g/dL (5.8-8.3) 06/06/18 07:15 Albumin 3.9 g/dL (3.0-4.8) 06/06/18 07:15 Globulin 3.8 gm/dL 06/06/18 07:15 Albumin/Globulin Ratio 1.0 (1.1-1.8) L 06/06/18 07:15 Lipase 49 U/L (23-300) 06/04/18 14:30 Urine Color Yellow (YELLOW) 06/04/18 14:00 Urine Appearance Sl cloudy (CLEAR) 06/04/18 14:00 Urine pH 6.0 (4.7-8.0) 06/04/18 14:00 Ur Specific Neeses 1.020 (1.005-1.035) 06/04/18 14:00 Urine Protein Negative mg/dL (<30 mg/dL) 06/04/18 14:00 Urine Glucose (UA) Negative mg/dL (NEGATIVE) 06/04/18 14:00 Urine Ketones Negative mg/dL (NEGATIVE) 06/04/18 14:00 Urine Blood Small (NEGATIVE) H 06/04/18 14:00 Urine Nitrate Negative (NEGATIVE) 06/04/18 14:00 Urine Bilirubin Negative (NEGATIVE) 06/04/18 14:00 Urine Urobilinogen 0.2 E.U./dL (<1 E.U./dL) 06/04/18 14:00 Ur Leukocyte Esterase Negative Mukesh/uL (NEGATIVE) 06/04/18 14:00 Urine RBC 0 - 2 /hpf (0-2) 06/04/18 14:00 Urine WBC 0 - 2 /hpf (0-6) 06/04/18 14:00 Ur Epithelial Cells 4 - 5 /hpf (0-5) 06/04/18 14:00 Urine Bacteria Few /hpf (NONE) 06/04/18 14:00 Physical Exam - Constitutional Appears: No Acute Distress - Head Exam Head Exam: ATRAUMATIC, NORMAL INSPECTION - Eye Exam Eye Exam: EOMI Pupil Exam: PERRL - ENT Exam ENT Exam: Mucous Membranes Moist - Respiratory Exam Respiratory Exam: Clear to Auscultation Bilateral, NORMAL BREATHING PATTERN. absent: Accessory Muscle Use, Wheezes - Cardiovascular Exam Cardiovascular Exam: REGULAR RHYTHM, +S1, +S2. absent: Tachycardia - GI/Abdominal Exam GI & Abdominal Exam: Normal Bowel Sounds, Soft. absent: Firm, Guarding Additional comments: no abdominal tenderness noted - Extremities Exam Extremities exam: Positive for: normal inspection, pedal pulses present. Negative for: calf tenderness, pedal edema, tenderness - Back Exam Back exam: absent: CVA tenderness (L), CVA tenderness (R) - Neurological Exam Neurological exam: Alert, CN II-XII Intact, Oriented x3 - Skin Skin Exam: Normal Color, Warm - Hospital Course Hospital Course: Upon admission, 33 year old with no PMH presenting to the hospital for one day history of periumbilical abdominal pain. Pain started at work yesterday while sitting, characterized as cramping, non radiating, occurring intermittently, associated with nausea and 3 episodes of NBNB vomiting and worse with eating greasy foods. Her last meal before onset of symptoms was a ham sandwich. She states she has had moderate abdominal cramping intermittently over the last year. She admits to normal BM's, the last one occurring this morning at 11am. Patient endorses passing gas today. She denies CP, SOB, fevers, diarrhea, constipation, back pain, urinary complaints, numbness, tingling, headaches, chills, swelling, recent travel, recent sickness, recent trauma, diet change, recent lifestyle change and sick contacts at home. During hospital course, patient was afebrile and no wbc count noted. CTAP 4/3 shows mild dilation of the proximal small bowel loops with fecalization fo small bowel contents, possibly chronic stasis or developing/partial obstruction. Mild hepatomegaly and fatty liver. Paitnet was kept NPO and abdominal US showed fatty infiltration of liver. Surgery was consulted and did not recommend any interventions. HIDA scan did not show any abnormalities. He was given zofran and morphine prn and NS @ 100cc/hr. Patient's diet was advanced and she tolerated diet without any complaints and she agreed with discharge today. All of patient's questions were answered to satisfaction. Discharge Plan - Discharge Medications Prescriptions: Pantoprazole [Protonix] 40 mg PO DAILY #14 ect - Follow Up Plan Condition: STABLE Disposition: HOME/ ROUTINE Instructions: Nausea and Vomiting, Adult (DC) Additional Instructions: Please follow up with [facility]. As per our discussion, you prefer to call and make an appointment. You have been provided with the clinic's number: [phone]. Please take protonix 40mg daily for two weeks. Please return to the ED for any new or worsening symptoms. Referrals: [facility] <Shawn Galdamez - Last Filed: 06/06/18 16:14> Provider - Provider Date of Admission: 06/04/18 17:49 Attending physician: Shawn Galdamez MD Consults: 06/04/18 17:43 General Surgery Consult Routine Comment: possible small bowel obstruction. Consulting Provider: Yinka Osei Consulting Physician: Yinka Osei Reason for Consult: possible small bowel obstruction. Hospital Course - Lab Results Lab Results: Most Recent Lab Values WBC 7.0 10^3/uL (4.5-11.0) 06/06/18 07:15 RBC 4.56 10^6/uL (3.5-6.1) 06/06/18 07:15 Hgb 11.6 g/dL (12.0-16.0) L 06/06/18 07:15 Hct 37.4 % (36.0-48.0) 06/06/18 07:15 MCV 82.0 fl (80.0-105.0) 06/06/18 07:15 MCH 25.4 pg (25.0-35.0) 06/06/18 07:15 MCHC 31.0 g/dl (31.0-37.0) 06/06/18 07:15 RDW 13.9 % (11.5-14.5) 06/06/18 07:15 Plt Count 342 10^3/uL (120.0-450.0) 06/06/18 07:15 MPV 10.2 fl (7.0-11.0) 06/06/18 07:15 Neut % (Auto) 62.9 % (50.0-68.0) 06/06/18 07:15 Lymph % (Auto) 28.0 % (22.0-35.0) 06/06/18 07:15 [place] % (Auto) 6.3 % (1.0-6.0) H 06/06/18 07:15 Eos % (Auto) 2.4 % (1.5-5.0) 06/06/18 07:15 Baso % (Auto) 0.4 % (0.0-3.0) 06/06/18 07:15 Lymph # (Auto) 2.0 (1.2-3.4) 06/06/18 07:15 [place] # (Auto) 0.4 (0.1-0.6) 06/06/18 07:15 Eos # (Auto) 0.2 (0.0-0.7) 06/06/18 07:15 Baso # (Auto) 0.03 K/mm3 (0.0-2.0) 06/06/18 07:15 Absolute Neuts (auto) 4.40 (1.4-6.5) 06/06/18 07:15 Sodium 139 mmol/L (132-148) 06/06/18 07:15 Potassium 4.4 mmol/L (3.6-5.0) 06/06/18 07:15 Chloride 102 mmol/L (98-107) 06/06/18 07:15 Carbon Dioxide 30 mmol/L (21-33) 06/06/18 07:15 Anion Gap 13 (10-20) 06/06/18 07:15 BUN 12 mg/dL (7-21) 06/06/18 07:15 Creatinine 0.7 mg/dl (0.7-1.2) 06/06/18 07:15 Est GFR ( Amer) > 60 06/06/18 07:15 Est GFR (Non-Af Amer) > 60 06/06/18 07:15 Random Glucose 93 mg/dL (70-110) 06/06/18 07:15 Calcium 9.0 mg/dL (8.4-10.5) 06/06/18 07:15 Magnesium 2.0 mg/dL (1.7-2.2) 06/04/18 14:30 Total Bilirubin 0.3 mg/dL (0.2-1.3) 06/06/18 07:15 AST 21 U/L (14-36) 06/06/18 07:15 ALT 23 U/L (7-56) 06/06/18 07:15 Alkaline Phosphatase 58 U/L (38-126) 06/06/18 07:15 Total Protein 7.7 g/dL (5.8-8.3) 06/06/18 07:15 Albumin 3.9 g/dL (3.0-4.8) 06/06/18 07:15 Globulin 3.8 gm/dL 06/06/18 07:15 Albumin/Globulin Ratio 1.0 (1.1-1.8) L 06/06/18 07:15 Lipase 49 U/L (23-300) 06/04/18 14:30 Urine Color Yellow (YELLOW) 06/04/18 14:00 Urine Appearance Sl cloudy (CLEAR) 06/04/18 14:00 Urine pH 6.0 (4.7-8.0) 06/04/18 14:00 Ur Specific Neeses 1.020 (1.005-1.035) 06/04/18 14:00 Urine Protein Negative mg/dL (<30 mg/dL) 06/04/18 14:00 Urine Glucose (UA) Negative mg/dL (NEGATIVE) 06/04/18 14:00 Urine Ketones Negative mg/dL (NEGATIVE) 06/04/18 14:00 Urine Blood Small (NEGATIVE) H 06/04/18 14:00 Urine Nitrate Negative (NEGATIVE) 06/04/18 14:00 Urine Bilirubin Negative (NEGATIVE) 06/04/18 14:00 Urine Urobilinogen 0.2 E.U./dL (<1 E.U./dL) 06/04/18 14:00 Ur Leukocyte Esterase Negative Mukesh/uL (NEGATIVE) 06/04/18 14:00 Urine RBC 0 - 2 /hpf (0-2) 06/04/18 14:00 Urine WBC 0 - 2 /hpf (0-6) 06/04/18 14:00 Ur Epithelial Cells 4 - 5 /hpf (0-5) 06/04/18 14:00 Urine Bacteria Few /hpf (NONE) 06/04/18 14:00 Attending/Attestation - Attestation I have personally seen and examined this patient.: Yes I have fully participated in the care of the patient.: Yes I have reviewed all pertinent clinical information, including history, physical exam and plan: Yes Notes (Text): 06/06/18 16:11 Attending note; Patient seen and examined with resident. Patient is alert and awake. Denies abdominal pain, nausea, vomiting. Tolerating diet well. Patient is a 33 year old with no PMH presenting to the hospital for one day history of periumbilical abdominal pain. Pain started at work yesterday while sitting, characterized as cramping, non radiating, occurring intermittently, associated with nausea and 3 episodes of vomiting and worse with eating greasy foods. 1. Abdominal pain nausea vomiting; CT abdomen and pelvis showed mild dilatation of the proximal small bowel loop and fecalilization of the small bowel could be chronic. Surgery evaluation appreciated. Patient is tolerating diet. 2. Nausea on vomiting; resolved. 3 GI prophylaxis with Protonix. 4. Right upper quadrant discomfort; abdominal ultrasound is negative for gallstones showed mild thickening of the gallbladder wall. HIDA scan is negative for cystic duct obstruction. Patient will be discharged home today. Upon discharge the patient will follow up with [facility] [place]. 06/06/18 16:14
== END 2018-06-06 12:20 | disposition home or self-care (01) ==
LOC: EDBD → ED 13:18 → ERH 17:49 → 3RSO 20:34
PROVIDERS: ADMIT Internal Medicine; ATTEND Internal Medicine
DX: R10.33 Periumbilical pain (principal); R11.2 Nausea with vomiting, unspecified; K76.0 Fatty (change of) liver, not elsewhere classified; R16.0 Hepatomegaly, not elsewhere classified
CPT/HCPCS: 36415; 74177; 76700; 78227; 80053; 81001; 81025; 83690; 83735; 85025; 96374; 96375; 99283; A9537; C9113; G0378; J1885; J2405; J7030; Q9967